=== PATIENT | female | born 1990 | race African-American/Black ===

== ENCOUNTER 2025-01-12 22:25 | Emergency (ER) | payer MEDICAID ==
[~2025-01-12] VITALS: Ht 172.7 cm; Wt 73.0 kg
[2025-01-12 22:29] VITALS: O2SAT 96
[2025-01-12] MEDS: MORPHINE SULFATE 4 MG/ML INJ (FOR IV/IM USE) IV ONE (23:17)
[2025-01-12] MEDS: SODIUM CHLORIDE 0.9% 1,000 ML IV ONE (23:17)
[2025-01-12] MEDS: ACETAMINOPHEN 500MG TABLET PO ONE (23:24)
[2025-01-12 23:41] LABS: BASOPHILS % 1.0 % (0.0-2.0); EOSINOPHILS % 0.2 % (0.0-5.0); HEMATOCRIT. 35.7 % (36.0-48.0); HEMOGLOBIN. 11.3 g/dL (12.0-16.0); LYMPHOCYTES % 19.0 % (20.0-50.0); MEAN PLATELET VOLUME 9.2 fl (7.4-10.4); MONOCYTES % 6.0 % (2.0-8.0); NEUTROPHILS % 73.8 % (40.0-76.0); PLATELET 324 x1000/uL (130-400); RED BLOOD CELL COUNT 4.95 mill/uL (4.2-5.4); RED CELL DISTRIBUTION WIDTH 17.5 % (11.6-14.6)
[2025-01-12 23:46] LABS: COLOR URINE YELLOW (YELLOW)
[2025-01-12 23:47] LABS: CLARITY URINE CLOUDY (CLEAR); GLUCOSE URINE 3+ (NEGATIVE); KETONES URINE TRACE (NEGATIVE); NITRITE URINE NEGATIVE (NEGATIVE); OCCULT BLOOD URINE 3+ (NEGATIVE); PH URINE 8.0 (4.5-8.0); PROTEIN URINE 1+ (NEGATIVE); SPECIFIC GRAVITY URINE 1.015 (1.005-1.030)
[2025-01-12 23:48] LABS: LEUKOCYTE ESTERASE URINE NEGATIVE (NEGATIVE); UROBILINOGEN URINE 0.2 E.U./dL (0.2-1.0)
[2025-01-12 23:51] LABS: HCG SCREEN NEGATIVE
[2025-01-12 23:54] LABS: CREATININE 1.0 mg/dL (0.6-1.0); UREA NITROGEN BLOOD 8 mg/dL (9-23)
[2025-01-12 23:56] LABS: ASPARTATE AMINOTRANSFERASE 15 IU/L (<34); BILIRUBIN DIRECT < 0.1 mg/dL (<=3.0)
[2025-01-12 23:57] LABS: BILIRUBIN TOTAL 0.4 mg/dL (0.1-1.0); PROTEIN TOTAL 8.4 g/dL (6.0-8.3)
[2025-01-13 00:01] LABS: AMORPHOUS SEDIMENT URINE 2+ /lpf; BACTERIA URINE 1+; RBC URINE TNTC /hpf (0-2); SQUAMOUS EPITHELIAL CELL URINE 1+ /lpf (RARE/1+); WBC URINE NONE SEEN /hpf (0-2)
[2025-01-13 00:29] LABS: B-HCG QUANTITATIVE < 1 mIU/mL (<6)
[2025-01-13] MEDS ORDERED: KETO10TA2 MT (01:00)
[2025-01-13 01:11] VITALS: BP 135/69; PULSE 60; RESP 14; TEMP 36.8; O2SAT 98
== END 2025-01-13 01:35 | disposition home or self-care (01) ==
LOC: ER 22:25 → CMPBEDREQ 01-13 02:09
DX: R10.30 Lower abdominal pain, unspecified (principal); F41.9 Anxiety disorder, unspecified; E11.9 Type 2 diabetes mellitus without complications; I10 Essential (primary) hypertension; F12.90 Cannabis use, unspecified, uncomplicated; Z79.899 Other long term (current) drug therapy; R10.20 Pelvic and perineal pain unspecified side
CPT/HCPCS: 99285; 96374; 76856; 96361; 80076; 80048; 81003; 81025; 84703; 84702; 83735; 85025; 86850; 86900; 86901; 36415; J2270; J7030